=== PATIENT | female | born 1975 | race Caucasian/White ===

== ENCOUNTER → 2018-05-13 15:50 | Outpatient (CLI) | payer OTHER, SELFPAY ==
[2016-02-22 13:16] VITALS: BMI 59.9
== END ==
LOC: MFPLAB 15:50 → LABSPEC 15:51
PROVIDERS: Family Provider Family Medicine; PCP Family Medicine; Visit Provider Family Medicine
DX: R35.0 Frequency of micturition (principal)
CPT/HCPCS: 87077; 87086; 87088; 87186